=== PATIENT | male | born 1950 | race Caucasian/White ===

== ENCOUNTER → 2017-02-20 | Outpatient (CLI) | payer MEDICARE, BC ==
[~2017-02-20] MED LIST: No meds per pt.
== END | disposition home or self-care (01) ==
LOC: STAR 11:15
PROVIDERS: ATTEND Surgery
DX: Z01.818 Encounter for other preprocedural examination (principal); K40.90 Unilateral inguinal hernia, without obstruction or gangrene, not specified as recurrent
CPT/HCPCS: 93005

== ENCOUNTER 2017-03-05 10:20 | Day surgery (SDC) | payer MEDICARE, BC ==
[2017-02-20 11:59] VITALS: BP 148/84
[~2017-03-05] VITALS: Ht 177.8 cm; Wt 68.2 kg
[~2017-03-05 10:20] MED LIST changes: +BUPIVACAINE/PF-EPI 0.5% 1:200K ONE
[2017-03-05] MEDS ORDERED: LACTATED RINGERS 1,000 ML IV SCH (10:48)
[2017-03-05] MEDS ORDERED: MIDAZOLAM 1 MG/ML, 2ML ONE (11:37)
[2017-03-05] MEDS ORDERED: FENTANYL PF 250 MCG/5ML ONE (11:37)
[2017-03-05] MEDS ORDERED: LABETALOL 5MG/ML, 20ML IV PRN (13:00)
[2017-03-05] MEDS ORDERED: hydrALAzine 20 MG/ML, 1ML IV PRN (13:00)
[2017-03-05] MEDS ORDERED: PROMETHAZINE 25 MG/ML, 1ML IV PRN (13:00)
[2017-03-05] MEDS ORDERED: METOCLOPRAMIDE 5 MG/ML, 2ML IV PRN (13:00)
[2017-03-05] MEDS ORDERED: OXYcodone 5 MG/5 ML ORAL.SOL UDC PO PRN ×2 (13:00→17:30)
[2017-03-05] MEDS ORDERED: MEPERIDINE/PF 25MG/0.5ML IVPush PRN (13:00)
[2017-03-05] MEDS ORDERED: ACETAMINOPHEN 325 MG TABLET PO PRN (13:00)
[2017-03-05] MEDS ORDERED: ONDANSETRON 2MG/ML, 2ML IVPush PRN ×2 (13:00→17:30)
[2017-03-05] MEDS ORDERED: HYDROmorphone 1 MG/ML, 1ML IV PRN (13:00)
[2017-03-05] MEDS: FENTANYL PF 100 MCG/2ML IV PRN ×2 (14:15→14:30)
[2017-03-05] MEDS ORDERED: FENTANYL PF 100 MCG/2ML ONE (14:17)
[2017-03-05] MEDS ORDERED: ACETAMINOPHEN 650 MG/20.3 ML UDC ONE (14:17)
[2017-03-05] MEDS ORDERED: OXYcodone 5 MG/5 ML ORAL.SOL UDC ONE (14:18)
[2017-03-05] MEDS ORDERED: ACETAMINOPHEN 325 MG TABLET ONE (14:18)
[2017-03-05] MEDS ORDERED: ROCURONIUM 10 MG/ML ONE (16:00)
[2017-03-05] MEDS ORDERED: NEOSTIGMINE 1 MG/ML, 10ML ONE (16:00)
[2017-03-05] MEDS ORDERED: CEFAZOLIN 1,000 MG ONE (16:00)
[2017-03-05] MEDS ORDERED: PROPOFOL 10 MG/ML, 20ML ONE (16:00)
[2017-03-05] MEDS ORDERED: GLYCOPYRROLATE 0.2MG/1ML ONE (16:00)
[2017-03-05] MEDS ORDERED: KETOROLAC 30 MG/1 ML ONE (17:07)
[2017-03-05] MEDS ORDERED: OXYcodone/APAP 5/325MG TABLET PO PRN (17:30)
[2017-03-05] MEDS ORDERED: KETOROLAC 30 MG/1 ML IVPush PRN (17:30)
[2017-03-05] MEDS ORDERED: HYDROmorphone 2 MG/ML, 1ML IVPush PRN (17:30)
[2017-03-05] MEDS ORDERED: DIPHENHYDRAMINE 50 MG/ML, 1ML IVPush PRN (17:30)
== END 2017-03-05 17:55 ==
LOC: OUT 10:20
PROVIDERS: ATTEND Surgery
DX: K40.30 Unilateral inguinal hernia, with obstruction, without gangrene, not specified as recurrent (principal); Z98.890 Other specified postprocedural states; Z80.42 Family history of malignant neoplasm of prostate; Z72.89 Other problems related to lifestyle
CPT/HCPCS: 49650; C1781; J0690; J1885; J2250; J2704; J2710; J3010; J7120; J3490